=== PATIENT | female | born 1980 | race Caucasian/White ===

== ENCOUNTER 2016-10-14 22:40 | Emergency (ER) | payer OTHER ==
--- NOTE | ~2016-10-14 | CR151 ---
[facility] A Service of [facility] RADIOLOGY TEXT RESULTS PATIENT: LORENZO LEACH LOCATION: SED : 82 UNIT #: [id number] AGE: [address]: Jose Hickey MD SEX: F ORDER DR: [id number] [address] [id number] MR#: [id number] Acc #: [id number] NAME: LORENZO LEACH : 1980 SEX: F STUDY DATE/TIME: 10/14/2016 22:43 UNIT: SED ROOM: STUDY DESCRIPTION: CR Hip Min 2 Views Rt Attending Physician: Jose Hickey M.D. Ordering Physician: Jose Hickey M.D. Primary Care Physician: Malaika Queen R.N. MEDICAL IMAGING REPORT This report is preliminary unless electronic signature is present. EXAM AP pelvis with frog view of the right hip. DATE OF EXAM 10/14/2016 HISTORY 36-year-old female with complaints of right hip pain for 4 days. No documented injury. COMPARISON None. FINDINGS No pelvic fracture, hip fracture or hip dislocation is seen. Hip joint spaces are well maintained without significant osteoarthritic change. No sacroiliac joint or pubic symphysis diastasis. Imaged lower lumbar spine is normal. IMPRESSION Normal pelvis and right hip. Dictated by... Josefina Otto M.D. THIS IS AN ELECTRONICALLY VERIFIED REPORT Josefina Otto M.D. at 10/15/2016 10:47 PM DAYANA/emil TD: 10/15/2016 18:28 JOB #: [id number] [facility] A Service of [facility] RADIOLOGY TEXT RESULTS PATIENT: LORENZO LEACH LOCATION: SED : 82 UNIT #: [id number] AGE: [address]: Jose Hickey MD SEX: F ORDER DR: MEDICAL IMAGING REPORT
[~2016-10-14 22:40] MED LIST: BIRTH CONTROL PILL PO; CIPRO PO; COLACE PO; DARVOCET-N 1001 TAB PO; DIFLUNISAL500 MG PO; FLAGYL PO; FLEXERIL10 MG PO; IBUPROFEN800 MG PO; LIPITOR20 MG DOB; NAPROSYN500 MG PO; NO MEDICATIONS; PRILOSEC; PRILOSEC20 MG DOB; REGLAN; TORADOL10 MG PO; VICODIN 5/1 TAB 5/50 PO; VICODIN 5/500 T1 TAB PO; VOLTAREN75 MG PO; ZOFRAN PO
== END 2016-10-15 00:11 | disposition home or self-care (01) ==
LOC: SED 22:40
DX: M25.551 Pain in right hip (principal); Z88.8 Allergy status to other drugs, medicaments and biological substances
CPT/HCPCS: 73502; 99283